=== PATIENT | female | born 1955 | race Caucasian/White ===

== ENCOUNTER 2017-01-25 11:47 | Emergency (ER) | payer BC ==
[2017-01-25 12:04] VITALS: BP 120/77
--- NOTE | 2017-01-25 12:24 | UC ---
Eye Complaint HPI - HPI Summary HPI Summary: 61 y/o female presents to the urgent care c/o of RT eye with redness, swollen, itchy with some crusting discharge this morning. Pt reports she is been having mild cold symptoms for the past couple of days. She has Hx of Seasonal allergies for which she has been taking Loratadine tabs. Pt denies pain, photophobia, fever,visual disturbance, SOB, cough, chest pain, COUGHLIN, N/V/D. - History of Current Complaint Chief Complaint: UCEye Stated Complaint: EYE COMPLAINT Time Seen by Provider: 01/25/17 11:59 Hx Obtained From: Patient Hx Last Menstrual Period: menopause ?: No Onset/Duration: Sudden Onset, Lasting Hours, Still Present Timing: Constant Severity Initially: Mild Severity Currently: Moderate Pain Intensity: 0 Pain Scale Used: 0-10 Numeric Location of Injury: Conjunctiva - RT eye with redness Character: Dull Alleviating Factor(s): Nothing Associated Signs And Symptoms: Positive: Drainage (Purulent) - yellowish, Swelling. Negative: Photophobia, Vision Impairment Right, Vision Impairment Left, Fever - Risk Factors Penetrating Injury Risk Factor: Negative Globe Rupture Risk Factors: Negative Acute Glaucoma Risk Factors: Negative Optic Artery Occlusion Risk Factors: Negative - Allergies/Home Medications Allergies/Adverse Reactions: Allergies Allergy/AdvReac Type Severity Reaction Status Date / Time Sulfa Drugs Allergy Hives Verified 11/02/16 11:27 Home Medications: Home Medications Chlorpheniramine-Dm [Cough & Cold 4-30 mg] 01/25/17 [History] PMH/Surg Hx/FS Hx/Imm Hx Previously Healthy: Yes Endocrine History: Thyroid Disease - Surgical History Surgical History: None - Family History Family History: cirrhosis - Social History Occupation: Employed Full-time Lives: With Family Alcohol Use: Daily Substance Use Type: None Smoking Status (MU): Never Smoked Tobacco Review of Systems Constitutional: Negative Skin: Negative Eyes: Drainage - yellowish eye discahrge, Eye Redness - RT eye ENT: Negative Respiratory: Negative Cardiovascular: Negative Gastrointestinal: Negative Genitourinary: Negative Motor: Negative Neurovascular: Negative Musculoskeletal: Negative Neurological: Negative Psychological: Negative All Other Systems Reviewed And Are Negative: Yes Physical Exam Triage Information Reviewed: Yes Appearance: Well-Appearing, No Pain Distress, Well-Nourished Vital Signs: Initial Vital Signs Temp 97.8 F 01/25/17 11:57 Pulse 79 01/25/17 11:57 Resp 16 01/25/17 11:57 BP 120/77 01/25/17 11:57 Pulse Ox 99 01/25/17 11:57 Vital Signs Reviewed: Yes Eyes: Positive: Other: - -Eyes: cornea is without lesion, Rt conjunctiva is is injected with yellowish eye discahrge,LF conjunctiva is clear. PERRLA. EOMI w/ o any nystagmus or strabismus. Fundi grossly normal. Disks are well delineated. There are no hemorrhages observed. Visual acuity is 20/20 bilaterally with lenses, and visual salter are within normal linits. Rt eye lid are edematous. ENT Exam: Normal ENT: Positive: Normal ENT inspection, Hearing grossly normal, Pharynx normal, TMs normal Dental Exam: Normal Neck exam: Normal Neck: Positive: Supple, Nontender, No Lymphadenopathy Respiratory Exam: Normal Respiratory: Positive: Chest non-tender, Lungs clear, Normal breath sounds Cardiovascular Exam: Normal Cardiovascular: Positive: RRR, No Murmur, Pulses Normal Abdominal Exam: Normal Abdomen Description: Positive: Nontender, No Organomegaly, Soft Bowel Sounds: Positive: Present Musculoskeletal Exam: Normal Neurological Exam: Normal Psychological Exam: Normal Skin Exam: Normal Eye Complaint Course/Dx - Course Course Of Treatment: RT eye redness with crusting yellowish eye discharge since yesterday. Hx obtained. PE abnormal finding:Eyes: Positive: Other: - -Eyes: cornea is without lesion, Rt conjunctiva is is injected with yellowish eye discahrge,LF conjunctiva is clear. PERRLA. EOMI w/o any nystagmus or strabismus. Fundi grossly normal. Disks are well delineated. There are no hemorrhages observed. Visual acuity is 20/20 bilaterally with lenses, and visual salter are within normal linits. Rt eye lid are edematous. Most likely Bacterial conjunctivitis. Pt Rx cirpofloxacin 0.3% opthalmic drops to apply on affected eye q4hrs x 5 days. Patient intructed on medication and advised to constantly was hands and avoid rubbing her affected eye, and if symptoms do not improve after treatment to return to the urgent care or f/u with her PCP. Pt understood and agreed - Differential Dx/Diagnosis Differential Diagnosis/HQI/PQRI: Conjunctivitis, Corneal Abrasion, Periorbital Cellulitis, Orbital Cellulitis, Uveitis Provider Diagnoses: Bacterial conjunctivitis Discharge - Discharge Plan Condition: Stable Disposition: HOME Prescriptions: Ciprofloxacin 0.3% OPTH.ALEX* [Cipro 0.3% Opth*] 2 drop RIGHT EYE Q4H #1 btl Patient Education Materials: Conjunctivitis (ED) Referrals: Ramses Lewis MD [Primary Care Provider] - Additional Instructions: Please apply ophthalmic drops as directed to avoid recurrent infection. Please hand washing to avoid spread with close contacts' If you do not improve or if symptoms worsen after the course of antibiotics, you should either follow up with your PCP or return to the urgent care for further evaluation and treatment.
== END 2017-01-25 12:37 | disposition home or self-care (01) ==
LOC: UCEAST 11:47
DX: H10.31 Unspecified acute conjunctivitis, right eye (principal); Z88.2 Allergy status to sulfonamides
CPT/HCPCS: 99212; G0463